=== PATIENT | female | born 1945 | race Caucasian/White ===

== ENCOUNTER → 2017-03-30 | Outpatient (CLI) | payer OTHER | LOC: CIMAGING 14:30 | PROVIDERS: ATTEND Family Medicine | DX: Z12.31 Encounter for screening mammogram for malignant neoplasm of breast (principal) ==

== ENCOUNTER 2017-08-21 11:21 | Emergency (ER) | payer OTHER ==
--- NOTE | 2017-08-21 11:43 | EDPHY ---
H & P Stated Complaint: right upper back pain started today 11am, constant Time Seen by Provider: 08/21/17 11:26 HPI/ROS: Chief Complaint: Back pain HPI: 71-year-old woman was at [employer] this morning when she had a sudden onset of pain below her right shoulder blade. Is 6 on 10. It is constant. There are no aggravating or alleviating factors. No shortness of breath. It does not rotate. Is described as an ache. She does have a history of a recent visit to [facility] and returned 4 days ago. Patient states that while in [place] when she did developed some pain and aching in her left leg and behind her left knee. This has gotten better over the last 4 days. No cough. ROS: 10 point Review of Systems is negative except as noted in the HPI. PMH: Asthma Social History: No smoking, no alcohol, no recreational drug use Family History: No family history of coronary artery disease Physical Exam: Gen: Awake, Alert, No Distress HEENT: Nose: no rhinorrhea Eyes: PERRLA, EOMI Mouth: Moist mucosa Neck: Supple, no JVD Chest: nontender, lungs clear to auscultation Heart: S1, S2 normal, no murmur Abd: Soft, non-tender, no guarding Back: no CVA tenderness, no midline tenderness she has reproducible tenderness below her right scapula reproducing her presenting complaint. No rash Ext: no edema, non-tender Skin: no rash Neuro: CN II-XII intact, Sensation grossly intact, Strength 5/5 in bilateral upper and lower extremities - Medical/Surgical History Hx Asthma: Yes Other PMH: asthma, basal cell CA, right arm ortho surg - Social History Smoking Status: Never smoked Constitutional: Initial Vital Signs Temperature (C) 36.7 C 08/21/17 11:26 Heart Rate 59 L 08/21/17 11:26 Respiratory Rate 18 08/21/17 11:26 Blood Pressure 163/81 H 08/21/17 11:26 O2 Sat (%) 92 08/21/17 11:26 O2 Delivery Mode Room Air Allergies/Adverse Reactions: erythromycin base [Erythromycin Base] Adverse Reaction (Verified 08/21/17 11:25) GI UPSET Home Medications: Medication Instructions Recorded [facility] 12/30/08 [place] 12/30/08 Medical Decision Making - Diagnostics EKG Interpretation: ECG time 11:32 a.m., sinus rhythm with a rate of 53, normal axis, normal intervals, no acute ST or T-wave changes. Impression: Normal ECG. ED Course/Re-evaluation: 1218 ECG is normal. Troponins negative. Metabolic panel was normal. Am awaiting D-dimer. Will give her some Toradol for her discomfort at this time. 1345 patient is refusing Toradol. Her D-dimer is negative. Troponins negative , lungs are clear, ECG is negative. She has no respiratory symptoms. It is reproducible. I believe it is musculoskeletal. Will discharge with anti- inflammatories [id number], follow up with primary care physician. - Data Points Laboratory Results: 08/21/17 08/21/17 08/21/17 11:48 11:46 11:40 D-Dimer 0.34 ug/mLFEU ug/mLFEU (0.00-0.50) POC Sodium 141 mEq/L mEq/L (135-145) POC Potassium 3.8 mEq/L mEq/L (3.3-5.0) POC Chloride 102.0 mEq/L mEq/L (97-110) POC Total CO2 27 mEq/L mEq/L (22-31) POC BUN 14 mg/dL mg/dL (7-23) POC Creatinine 0.7 mg/dL mg/dL (0.6-1.0) POC Glucose 128 mg/dL H mg/dL (70-100) POC Calcium 10.0 mg/dL mg/dL (8.5-10.4) POC Troponin I 0.00 ng/mL ng/mL (0.00-0.08) Medications Given: Discontinued Medications Ketorolac Tromethamine (Toradol) 15 mg IVP EDNOW ONE Stop: 08/21/17 12:19 Last Admin: 08/21/17 12:30 Dose: Not Given Point of Care Test Results: CBC CBC Collection Date 08/21/17 CBC Collection Time 12:08 WBC 5.3 RBC 5.02 HGB 15 HCT 45.9 PLT 240 Neut # 2.9 Neut 54.6 LYMPH # 2.1 LYMPH 39.4 Other WBC # 0.3 Other WBC 6.0 MCV 91.4 Chemistry 08/21/17 08/21/17 11:48 11:46 POC Sodium 141 mEq/L mEq/L (135-145) POC Potassium 3.8 mEq/L mEq/L (3.3-5.0) POC Chloride 102.0 mEq/L mEq/L (97-110) POC Total CO2 27 mEq/L mEq/L (22-31) POC BUN 14 mg/dL mg/dL (7-23) POC Creatinine 0.7 mg/dL mg/dL (0.6-1.0) POC Glucose 128 mg/dL H mg/dL (70-100) POC Calcium 10.0 mg/dL mg/dL (8.5-10.4) POC Troponin I 0.00 ng/mL ng/mL (0.00-0.08) Departure - Departure Disposition: Home, Routine, Self-Care Clinical Impression: Back pain Condition: Good Instructions: Back Pain (ED), Muscle Strain (ED) Additional Instructions: Alternate acetaminophen (1000 mg) with ibuprofen (400 mg) every 4 hours as needed for pain. Follow up with her primary care physician in 3-4 days for further evaluation if her symptoms have not improved. Return to the emergency department for worsening pain, shortness of breath, lightheadedness or fainting, or any other concerns. Referrals: Nelli Andrews MD [Primary Care Provider] - As per Instructions
--- NOTE | 2017-08-21 11:44 | CPEKG ---
Heart Rate: 53 RR Interval: 1132 P-R Interval: 172 QRSD Interval: 94 QT Interval: 452 QTC Interval: 425 P [place]: 34 QRS [place]: 7 T Wave [place]: 21 EKG Severity - NORMAL ECG - EKG Impression: SINUS RHYTHM Electronically Signed By: Zacarias Schwartz 21-Aug-2017 11:49:39
[2017-08-21] MEDS: KETOROLAC 15 MG/1 ML SDV IVP ONE (12:30)
[2017-08-21 14:30] VITALS: BP 140/70
== END 2017-08-21 13:52 | disposition home or self-care (01) ==
LOC: CED 11:21
DX: M54.9 Dorsalgia, unspecified (principal); J45.909 Unspecified asthma, uncomplicated; Z85.828 Personal history of other malignant neoplasm of skin
CPT/HCPCS: 80048-PO; 84484-PO; J1885

== ENCOUNTER → 2018-08-03 | Outpatient (CLI) | payer OTHER | LOC: CIMAGING 13:05 ==